=== PATIENT | female | born 1970 | race American Indian/Alaskan Native ===

== ENCOUNTER 2017-01-26 15:10 | Emergency (ER) | payer BC ==
--- NOTE | 2017-01-26 19:04 | Emergency Department Report ---
ED Back Pain/Injury HPI - General Chief Complaint: Back Pain/Injury Stated Complaint: RT SIDE PAIN Time Seen by Provider: 01/26/17 19:01 Source: patient, family Limitations: No Limitations - History of Present Illness Initial Comments: Patient here reporting right lower back pain going down the right leg. She said the pain has been present for 2 weeks. She cannot recall any injury to her back. She says she had back pain in the past but nothing like what she is experiencing now. Pain is 7 out of 10 and achy nonradiating. No over-the- counter medication taken. Denies abdominal pain. Denies any numbness or tingling to extremities. Denies any loss of bowel or bladder function. No nausea vomiting. Denies any fever or chills. Urinary burning frequency or urgency. MD Complaint: back pain Onset/Timin -: week(s) Similar Symptoms Previously: No Place: home Radiation: right leg Severity: moderate Severity scale (0 -10): 7 Quality: aching Improves With: immobilization Worsens With: movement, walking Context: unknown Associated Symptoms: denies: confusion, weakness, chest pain, numbness, difficulty walking, cough, difficulty urinating, diaphoresis, incontinence, fever/chills, constipation, headaches, abdominal pain, loss of appetite, malaise , nausea/vomiting, rash, seizure, shortness of breath, syncope - Related Data Previous Rx's Medication Instructions Recorded Last Taken Type traMADol [Ultram] 50 mg PO Q6HR PRN #20 tablet 01/26/17 Unknown Rx Allergies Allergy/AdvReac Type Severity Reaction Status Date / Time No Known Allergies Allergy Unverified 01/26/17 15:27 ED Review of Systems ROS: Stated complaint: RT SIDE PAIN Other details as noted in HPI Comment: All other systems reviewed and negative Constitutional: no symptoms reported ENT: denies: epistaxis Respiratory: no symptoms reported Cardiovascular: denies: chest pain, palpitations, edema, syncope Gastrointestinal: denies: abdominal pain, nausea, vomiting, diarrhea, constipation Genitourinary: denies: urgency, dysuria, frequency, hematuria, discharge, abnormal menses Musculoskeletal: denies: arthralgia, myalgia Skin: denies: rash Neurological: denies: headache, weakness, numbness, paresthesias, confusion, abnormal gait, vertigo ED Past Medical Hx - Past Medical History Previous Medical History?: Yes Hx Hypertension: Yes Hx Seizures: Yes Hx Asthma: Yes Additional medical history: Carpal Tunnel - Surgical History Past Surgical History?: Yes Additional Surgical History: - Family History Family history: hypertension - Social History Smoking Status: Never Smoker Substance Use Type: None - Medications Home Medications: Home Medications Medication Instructions Recorded Confirmed Last Taken Type traMADol [Ultram] 50 mg PO Q6HR PRN #20 tablet 01/26/17 Unknown Rx ED Physical Exam - General Limitations: No Limitations General appearance: alert, in no apparent distress - Head Head exam: Present: atraumatic, normocephalic, normal inspection - Eye Eye exam: Present: normal appearance, PERRL, EOMI. Absent: periorbital swelling , periorbital tenderness Pupils: Present: normal accommodation - ENT ENT exam: Present: normal exam, normal orophraynx, mucous membranes moist, TM's normal bilaterally, normal external ear exam - Neck Neck exam: Present: normal inspection, full ROM. Absent: tenderness, meningismus, lymphadenopathy - Expanded Neck Exam Expanded Neck exam: Absent: tenderness, midline deformity, anterior neck swelling, tracheal deviation - Respiratory Respiratory exam: Present: normal lung sounds bilaterally. Absent: respiratory distress, chest wall tenderness - Cardiovascular Cardiovascular Exam: Present: regular rate, normal rhythm, normal heart sounds - GI/Abdominal GI/Abdominal exam: Present: soft, normal bowel sounds. Absent: distended, tenderness, guarding, rebound, rigid - Expanded Lower Extremity Exam Right Hip exam: Present: normal inspection, full ROM, pelvic stability. Absent: tenderness, swelling, abrasion, laceration, ecchymosis, deformity, crepidus, dislocation, erythema, external rotation, internal rotation, shortening Upper Leg exam: Present: normal inspection, full ROM. Absent: tenderness, swelling, abrasion, laceration, ecchymosis, deformity, crepidus, dislocation, erythema Knee exam: Present: normal inspection, full ROM, full knee extension. Absent: tenderness, swelling, abrasion, laceration, ecchymosis, deformity, crepidus, dislocation, erythema, effusion, pain w/ pronation/supination Lower Leg exam: Present: normal inspection, full ROM. Absent: tenderness, swelling, abrasion, laceration, ecchymosis, deformity, crepidus, dislocation, erythema, palpable cord, Rachael's sign Ankle exam: Present: normal inspection, full ROM. Absent: tenderness, swelling , abrasion, laceration, ecchymosis, deformity, crepidus, dislocation, erythema Foot/Toe exam: Present: normal inspection, full ROM. Absent: tenderness, swelling, abrasion, laceration, ecchymosis, deformity, crepidus, dislocation, erythema, amputation, puncture wound, foreign body, calcaneal tenderness, tenderness at base of 5th metatarsal, nail avulsion, subungual hematoma Neuro vascular tendon exam: Present: no vascular compromise. Absent: pulse deficit, abnormal cap refill, motor deficit, sensory deficit, tendon deficit, extremity cold to touch, pallor, abnormal 2-point discrimination, decreased fine /light touch, foot drop, peroneal nerve deficit, significant pain with passive ROM of distal joint Gait: Positive: observed and normal - Back Exam Back exam: Present: normal inspection, full ROM. Absent: tenderness, CVA tenderness (R), CVA tenderness (L), muscle spasm, paraspinal tenderness, vertebral tenderness, rash noted - Expanded Back Exam Expanded Back exam: Absent: saddle anesthesia Back exam: Negative Straight Leg Raising: Left, Right - Neurological Exam Neurological exam: Present: alert, oriented X3, normal gait, reflexes normal. Absent: motor sensory deficit - Expanded Neurological Exam Expanded Neurological exam: Absent: innattentive, memory loss-remote event, memory loss- recent event, ataxia, receptive aphasia, expressive aphasia, total aphasia, tremor, protecting the airway Patient oriented to: Present: person, place, time Speech: Present: fluid speech Cranial nerves: EOM's Intact: Normal, Gag Reflex: Normal, Nystagmus: Normal, Facial Sensation: Normal Cerebellar function: Romberg: Normal Upper motor neuron: Pronator Drift: Normal, Sensory Extinction: Normal Sensory exam: Upper Extremity Light Touch: Normal, Upper Extremity Temperature: Normal, Lower Extremity Light Touch: Normal, Lower Extremity Temperature: Normal Motor strength exam: RUE: 5, LUE: 5, RLE: 5, LLE: 5 DTR: bicep (R): 2+, bicep (L): 2+, tricep (R): 2+, tricep (L): 2+, knee (R): 2+ , knee (L): 2+, ankle (R): 2+, ankle (L): 2+ Best Eye Response (Murray): (4) open spontaneously Best Motor Response (Murray): (6) obeys commands Best Verbal Response (Murray): (5) oriented Saira Total: 15 - Psychiatric Psychiatric exam: Present: normal affect, normal mood - Skin Skin exam: Present: warm, dry, intact, normal color. Absent: rash ED Course Vital Signs 01/26/17 15:27 Temperature 98.2 F Pulse Rate 82 Respiratory 20 Rate Blood Pressure 141/82 O2 Sat by Pulse 97 Oximetry - Reevaluation(s) Reevaluation #1: 01/26/17 21:06 Patient given [place] 5/325 2 tablets , Flexeril 10 mg by mouth in emergency room along with Decadron 10 mg IM. ED Medical Decision Making - Lab Data Lab Results 01/26/17 Range/Units 19:35 Urine Color Yellow (Yellow) Urine Turbidity Clear (Clear) Urine pH 5.0 (5.0-7.0) Ur Specific [place] 1.020 (1.003-1.030) Urine Protein <15 mg/dl (Negative) mg/dL Urine Glucose (UA) Neg (Negative) mg/dL Urine Ketones Neg (Negative) mg/dL Urine Blood Neg (Negative) Urine Nitrite Neg (Negative) Urine Bilirubin Neg (Negative) Urine Urobilinogen < 2.0 (<2.0) mg/dL Ur Leukocyte Esterase Mod (Negative) Urine WBC (Auto) 2.0 (0.0-6.0) /HPF Urine RBC (Auto) 1.0 (0.0-6.0) /HPF U Epithel Cells (Auto) 2.0 (0-13.0) /HPF Urine Mucus Few /HPF Urine culture is pending - Radiology Data Radiology results: report reviewed X-ray of the lumbar spine revealed mild degeneration after discussion faucet degenerative changes. - Medical Decision Making ED course: She given [place] 5/325 mg 2 tablets by mouth and Flexeril 10 mg by mouth. She was also given 10 Mg IM and Emergency Room for Lower Back Pain. Radiculopathic. Her Urine Was Normal except That She Has Moderate Leukocyte Estrace. Discussed with Her That I Sent a Culture off and If She Needs to Be on Antibiotic Will Call Her and Let Her Know. I Discussed X-Ray Results with Her and Discussed Treatment Plan. Discussed with Her That If She Continues to Have Back Pain with Radiating She Will Need to Follow-Up with Orthopedic Doctor. Patient Discharged Home with Prescription for Ultram. Critical care attestation.: If time is entered above; I have spent that time in minutes in the direct care of this critically ill patient, excluding procedure time. ED Disposition Clinical Impression: Lumbar radiculopathy, acute, Degenerative disc disease, lumbar Lower back pain Qualifiers: Chronicity: acute Back pain laterality: right Sciatica presence: with sciatica Sciatica laterality: sciatica of right side Qualified Code(s): M54.41 - Lumbago with sciatica, right side Disposition: DISCHARGED TO HOME OR SELFCARE Is pt being admited?: No Does the pt Need Aspirin: No Condition: Stable Instructions: Lumbar Radiculopathy (ED), Back Pain (ED), Degenerative Disc Disease (ED) Prescriptions: traMADol [Ultram] 50 mg PO Q6HR PRN #20 tablet PRN Reason: Pain Referrals: RITU ORDONEZ MD [Staff Physician] - 3-5 Days Forms: Work/School Release Form(ED), Accompanied Note
[2017-01-26] MEDS ORDERED: FLEXERIL PO ONE (19:36)
[2017-01-26] MEDS ORDERED: NORCO 5/325 PO ONE (19:36)
[2017-01-26 19:54] LABS: Bilirubin,Urine NEG (Negative); Blood,Urine NEG (Negative); Ketones,Urine NEG (Negative); Leukocyte Esterase,Urine MOD (Negative); Mucus,Urine FEW /HPF; Nitrite,Urine NEG (Negative); Protein,Urine <15 mg/dL mg/dL (Negative); Urobilinogen,Urine < 2.0 mg/dL (<2.0)
--- NOTE | 2017-01-26 20:43 | XRay Report ---
FINAL REPORT PROCEDURE: XR SPINE LUMBOSACRAL 2-3V TECHNIQUE: Lumbosacral spine, AP and lateral views HISTORY: lumbar radiculopathy COMPARISON: No prior studies are available for comparison. FINDINGS: Vertebral body heights and alignment are maintained. There is mild degenerative disc space narrowing and endplate sclerosis at L5-S1. No scoliosis. Mild lower lumbar spine facet arthritic changes. IMPRESSION: Mild lower lumbar spine degenerative disc and facet degenerative changes
[2017-01-26] MEDS ORDERED: DECADRON IM STA (20:59)
[2017-01-26 21:41] VITALS: BP 160/99
== END 2017-01-26 21:23 | disposition home or self-care (01) ==
LOC: ED 15:10
DX: M51.16 Intervertebral disc disorders with radiculopathy, lumbar region (principal); I10 Essential (primary) hypertension; R56.9 Unspecified convulsions; J45.909 Unspecified asthma, uncomplicated
CPT/HCPCS: 72100; 81001; 81025; 87086; 96372; 99283; J1100

== ENCOUNTER 2017-07-10 16:00 | Emergency (ER) | payer BC ==
[2017-07-10 16:14] VITALS: BP 156/99
[2017-07-10 22:00] LABS: Basophils % (Auto) 0.5 % (0.0-1.8); Eosinophils % (Auto) 0.3 % (0.0-4.3); Hematocrit 37.9 % (30.3-42.9); Hemoglobin 11.8 gm/dl (10.1-14.3); Mean Corpuscular HGB Conc 31 % (30-34); Mean Corpuscular Volume 76 fl (79-97); Platelet Count 151 K/mm3 (140-440); Red Blood Count 4.99 M/mm3 (3.65-5.03); Red Cell Distribution Width 14.8 % (13.2-15.2); White Blood Count 9.4 K/mm3 (4.5-11.0)
[2017-07-10 22:06] LABS: Mean Corpuscular Hemoglobin 24 pg (28-32)
[2017-07-10 22:16] LABS: Alanine Aminotransferase 20 units/L (7-56); Albumin 4.1 g/dL (3.9-5); Albumin/Globulin Ratio 1.4 %; Alkaline Phosphatase 91 units/L (35-129); Anion Gap 21 mmol/L; Blood Urea Nitrogen 14 mg/dL (7-17); Calcium 9.4 mg/dL (8.4-10.2); Carbon Dioxide 22 mmol/L (22-30); Chloride 103.4 mmol/L (98-107); Glucose 151 mg/dL (65-100); Potassium 4.1 mmol/L (3.6-5.0); Sodium 142 mmol/L (137-145); Total Protein 7.1 g/dL (6.3-8.2)
== END 2017-07-11 | disposition left against medical advice (07) ==
LOC: ED 16:00
DX: R42 Dizziness and giddiness (principal); Z53.21 Procedure and treatment not carried out due to patient leaving prior to being seen by health care provider
CPT/HCPCS: 36415; 80053; 85025

== ENCOUNTER 2018-02-08 10:37 | Outpatient (CLI) | payer BC ==
[2018-02-08 11:03] LABS: Hematocrit 37.2 % (30.3-42.9); Hemoglobin 11.6 gm/dl (10.1-14.3); Mean Corpuscular HGB Conc 31 % (30-34); Mean Corpuscular Volume 76 fl (79-97); Platelet Count 124 K/mm3 (140-440); Red Blood Count 4.91 M/mm3 (3.65-5.03); Red Cell Distribution Width 14.9 % (13.2-15.2)
[2018-02-08 11:06] LABS: Mean Corpuscular Hemoglobin 24 pg (28-32)
[2018-02-08 11:18] LABS: Alanine Aminotransferase 17 units/L (7-56); Albumin 3.9 g/dL (3.9-5); BUN/Creatinine Ratio 26; Blood Urea Nitrogen 18 mg/dL (7-17); Calcium 9.1 mg/dL (8.4-10.2); Chol/HDL Ratio 2.92 %; HDL Cholesterol 53 mg/dL (40-59); Hemolysis Index 13; LDL Cholesterol,Direct 95 mg/dL (50-130)
== END 2018-02-08 10:38 | disposition home or self-care (01) ==
LOC: LAB 10:37
PROVIDERS: ATTEND Internal Medicine
DX: E11.65 Type 2 diabetes mellitus with hyperglycemia (principal); E78.2 Mixed hyperlipidemia; R53.83 Other fatigue
CPT/HCPCS: 36415; 80053; 80061; 83036; 84443; 85027

== ENCOUNTER 2018-02-10 08:34 | Outpatient (CLI) | payer BC ==
--- NOTE | 2018-02-11 14:52 | Mammography Report ---
BILATERAL DIGITAL SCREENING MAMMOGRAM WITH CAD:02/10/18 08:45:00 CLINICAL: Baseline screening. FINDINGS: The breasts are mostly fatty with a few bilateral scattered fibroglandular densities.No mass, architectural distortion or suspicious calcifications. IMPRESSION: No mammographic evidence of malignancy. BI-RADS CATEGORY: 1 -- Negative RECOMMENDATION: Routine mammographic screening in one year. ACR BI-RADS MAMMOGRAPHIC CODES: 0 = Needs additional imaging evaluation; 1 = Negative; 2 = Benign; 3 = Probably benign; 4 = Suspicious; 5 = Malignant; 6 = Known biopsy-proven malignancy COMMENT: 1. Dense breast tissue, i.e., adenosis, fibrocystic changes, etc., may obscure an underlying neoplasm. 2. Approximately 10% of cancers are not detected with mammography. 3. A negative mammography report should not delay biopsy if a clinically suspicious mass is present.
== END 2018-02-10 08:35 | disposition home or self-care (01) ==
LOC: SPVWC 08:34
PROVIDERS: ATTEND Internal Medicine
DX: Z12.31 Encounter for screening mammogram for malignant neoplasm of breast (principal)
CPT/HCPCS: 77067

== ENCOUNTER 2018-06-01 10:20 | Outpatient (CLI) | payer BC ==
[2018-06-01 10:45] LABS: Basophils % (Auto) 0.5 % (0.0-1.8); Eosinophils # (Auto) 0.2 K/mm3 (0.0-0.4); Hemoglobin 11.9 gm/dl (10.1-14.3); Lymphocytes # (Auto) 1.8 K/mm3 (1.2-5.4); Lymphocytes % (Auto) 29.5 % (13.4-35.0); Mean Corpuscular HGB Conc 31 % (30-34); Mean Corpuscular Volume 76 fl (79-97); Monocytes # (Auto) 0.4 K/mm3 (0.0-0.8); Monocytes % (Auto) 7.3 % (0.0-7.3); Platelet Count 138 K/mm3 (140-440); Red Blood Count 5.01 M/mm3 (3.65-5.03); Red Cell Distribution Width 14.8 % (13.2-15.2)
[2018-06-01 10:46] LABS: Mean Corpuscular Hemoglobin 24 pg (28-32)
[2018-06-01 11:04] LABS: Erythrocyte Sedimentation Rate 20 mm/Hr (0-20)
[2018-06-01 11:08] LABS: Alanine Aminotransferase 16 units/L (7-56); Albumin 3.9 g/dL (3.9-5); BUN/Creatinine Ratio 23; Blood Urea Nitrogen 16 mg/dL (7-17); Calcium 9.2 mg/dL (8.4-10.2); Hemolysis Index 7; Uric Acid 5.3 mg/dL (3.5-7.6)
--- NOTE | 2018-06-02 07:56 | XRay Report ---
BILATERAL FEET, 3 VIEWS History: Chronic gout left and right ankle. Findings: No comparison. There is normal bone mineralization. No evidence for fracture, bone lesion or bony erosions. No significant degenerative changes. Small plantar spurs are noted bilaterally. The soft tissues are unremarkable. Impression: Small bilateral plantar spurs, otherwise, unremarkable bilateral feet.
== END 2018-06-01 10:21 | disposition home or self-care (01) ==
LOC: XRAY 10:20
PROVIDERS: ATTEND Podiatrist Foot & Ankle Surgery
DX: M77.52 Other enthesopathy of left foot and ankle (principal); M77.51 Other enthesopathy of right foot and ankle; M1A.0711 Idiopathic chronic gout, right ankle and foot, with tophus (tophi); M1A.0721 Idiopathic chronic gout, left ankle and foot, with tophus (tophi); M79.89 Other specified soft tissue disorders; L08.9 Local infection of the skin and subcutaneous tissue, unspecified; M25.70 Osteophyte, unspecified joint; I10 Essential (primary) hypertension; J45.909 Unspecified asthma, uncomplicated
CPT/HCPCS: 36415; 80053; 84550; 85025; 85652

== ENCOUNTER 2019-10-02 18:44 | Emergency (ER) | payer SELFPAY ==
--- NOTE | 2019-10-02 19:32 | Emergency Department Report ---
Blank Doc - Documentation Documentation: 48-year-old female that presents with SOB, body aches, cough, and chest pain d uring cough. This initial assessment/diagnostic orders/clinical plan/treatment(s) is/are subject to change based on patient's health status, clinical progression and re- assessment by fellow clinical providers in the ED. Further treatment and workup at subsequent clinical providers discretion. Patient/guardians urged not to elope from the ED as their condition may be serious if not clinically assessed and managed. Initial orders include: 1- Patient sent to [facility] for further evaluation and treatment 2- CXR
[2019-10-02 19:33] VITALS: BP 154/66
--- NOTE | 2019-10-02 20:12 | XRay Report ---
CHEST 2 VIEWS INDICATION: cough. COMPARISON: None. FINDINGS: Support devices: None. Heart: Within normal limits. Lungs/Pleura: Large mass right middle lobe measuring approximately 5.7 cm. Abnormal appearance of the right hilum as well likely representing adenopathy. Small right effusion. The left lung is clear. IMPRESSION: Extensive changes right chest worrisome for metastatic carcinoma. Contrast-enhanced CT c hest is recommended for further evaluation. Signer Name: Hector Castaneda MD Signed: 10/02/2019 8:08 PM Workstation Name: [id number]
[2019-10-02 22:54] LABS: Basophils % (Auto) 0.5 % (0.0-1.8); Eosinophils # (Auto) 0.2 K/mm3 (0.0-0.4); Eosinophils % (Auto) 3.1 % (0.0-4.3); Hematocrit 36.7 % (30.3-42.9); Hemoglobin 11.4 gm/dl (10.1-14.3); Lymphocytes # (Auto) 1.4 K/mm3 (1.2-5.4); Lymphocytes % (Auto) 20.5 % (13.4-35.0); Mean Corpuscular HGB Conc 31 % (30-34); Mean Corpuscular Volume 74 fl (79-97); Monocytes # (Auto) 0.6 K/mm3 (0.0-0.8); Monocytes % (Auto) 8.1 % (0.0-7.3); Platelet Count 190 K/mm3 (140-440); Red Blood Count 4.94 M/mm3 (3.65-5.03); Red Cell Distribution Width 15.8 % (13.2-15.2)
[2019-10-02 23:03] LABS: INR 0.95 (0.87-1.13)
[2019-10-02 23:04] LABS: Partial Thromboplastin Time 26.6 Sec. (24.2-36.6)
[2019-10-02 23:05] LABS: Alanine Aminotransferase 20 units/L (7-56); Albumin 4.1 g/dL (3.9-5); BUN/Creatinine Ratio 19; Blood Urea Nitrogen 13 mg/dL (7-17); Calcium 9.4 mg/dL (8.4-10.2); Hemolysis Index 6
--- NOTE | 2019-10-02 23:33 | Emergency Department Report ---
ED General Adult HPI - General Chief complaint: Upper Respiratory Infection Stated complaint: CHEST PAIN, SOB Time Seen by Provider: 10/02/19 19:31 Source: patient Mode of arrival: Ambulatory Limitations: No Limitations - History of Present Illness Initial comments: Patient is a 48-year-old female presents emergency room with complaints of shortness of breath that began 2 weeks ago. She has associated right sided chest pain which she describes as soreness and a muscle spasm. She states she has pain with taking deep breaths. Patient states that she also has right upper quadrant pain and has occasional episodes of diaphoresis. She denies any vom iting, diarrhea, fever, recent illness, urinary symptoms. She states she is a never smoker. She states that her is a smoker. She has a past medical history of asthma, hypertension, carpal tunnel. She denies any allergies medications. She denies any daily medications. Severity scale (0 -10): 8 - Related Data Previous Rx's Medication Instructions Recorded Last Taken Type traMADoL [Ultram] 50 mg PO Q6HR PRN #20 tablet 01/26/17 Unknown Rx Allergies Allergy/AdvReac Type Severity Reaction Status Date / Time No Known Allergies Allergy Unverified 01/26/17 15:27 ED Review of Systems ROS: Stated complaint: CHEST PAIN, SOB Other details as noted in HPI Comment: All other systems reviewed and negative ED Past Medical Hx - Past Medical History Previous Medical History?: Yes Hx Hypertension: Yes Hx Seizures: Yes Hx Asthma: Yes Additional medical history: Carpal Tunnel - Surgical History Past Surgical History?: Yes Additional Surgical History: - Social History Smoking Status: Never Smoker Substance Use Type: None - Medications Home Medications: Home Medications Medication Instructions Recorded Confirmed Last Taken Type traMADoL [Ultram] 50 mg PO Q6HR PRN #20 tablet 01/26/17 Unknown Rx ED Physical Exam - General Limitations: No Limitations General appearance: alert, in no apparent distress - Head Head exam: Present: atraumatic, normocephalic - Eye Eye exam: Present: normal appearance - ENT ENT exam: Present: mucous membranes moist - Respiratory Respiratory exam: Present: normal lung sounds bilaterally. Absent: respiratory distress, wheezes, rales, rhonchi, stridor, chest wall tenderness, accessory muscle use, decreased breath sounds, prolonged expiratory - Cardiovascular Cardiovascular Exam: Present: regular rate, normal rhythm, normal heart sounds. Absent: systolic murmur, diastolic murmur, rubs, gallop - GI/Abdominal GI/Abdominal exam: Present: soft, tenderness (RUQ), normal bowel sounds. Absent: distended, guarding, rebound, rigid - Neurological Exam Neurological exam: Present: alert, oriented X3 - Psychiatric Psychiatric exam: Present: normal affect, normal mood - Skin Skin exam: Present: warm, dry, intact ED Course Vital Signs 10/02/19 10/02/19 19:31 22:22 Temperature 98 F Pulse Rate 80 Respiratory 18 17 Rate Blood Pressure 154/66 O2 Sat by Pulse 100 Oximetry - Consultations Consultation #1: 10/03/19 01:[address] Terrell, hospitalist regarding pt history and results, will admit pt to the hospital, will accept and resume care of patient, asked to write admit orders. 10/03/19 01:45 Dr. Terrell, hospitalist went to see patient and she informed him that her daughter wanted her to get a second opinion. I went in to speak with patient and she also told me that she wants to get a second opinion. I discussed with patient that another hospital would also perform the same CT scan that we did and that she needed a biopsy for further evaluation. Patient states that she would like to go home and think about it I discussed the risks associated with leaving AMA. Patient states that she will sign AMA form. I went over the risks and she signed AMA form. ED Medical Decision Making - Lab Data Result diagrams: 10/02/19 22:29 10/02/19 22:29 Lab Results 10/02/19 10/02/19 10/02/19 Range/Units 22:29 22:29 22:29 WBC 7.0 (4.5-11.0) K/mm3 RBC 4.94 (3.65-5.03) M/mm3 Hgb 11.4 (10.1-14.3) gm/dl Hct 36.7 (30.3-42.9) % MCV 74 L (79-97) fl MCH 23 L (28-32) pg MCHC 31 (30-34) % RDW 15.8 H (13.2-15.2) % Plt Count 190 (140-440) K/mm3 Lymph % (Auto) 20.5 (13.4-35.0) % [place] % (Auto) 8.1 H (0.0-7.3) % Eos % (Auto) 3.1 (0.0-4.3) % Baso % (Auto) 0.5 (0.0-1.8) % Lymph # 1.4 (1.2-5.4) K/mm3 [place] # 0.6 (0.0-0.8) K/mm3 Eos # 0.2 (0.0-0.4) K/mm3 Baso # 0.0 (0.0-0.1) K/mm3 Seg Neutrophils % 67.8 (40.0-70.0) % Seg Neutrophils # 4.8 (1.8-7.7) K/mm3 PT 12.6 (12.2-14.9) Sec. INR 0.95 (0.87-1.13) APTT 26.6 (24.2-36.6) Sec. Sodium 144 (137-145) mmol/L Potassium 4.0 (3.6-5.0) mmol/L Chloride 105.5 (98-107) mmol/L Carbon Dioxide 26 (22-30) mmol/L Anion Gap 17 mmol/L BUN 13 (7-17) mg/dL Creatinine 0.7 (0.7-1.2) mg/dL Estimated GFR > 60 ml/min BUN/Creatinine Ratio 19 % Glucose 115 H (65-100) mg/dL Calcium 9.4 (8.4-10.2) mg/dL Total Bilirubin 0.20 (0.1-1.2) mg/dL AST 21 (5-40) units/L ALT 20 (7-56) units/L Alkaline Phosphatase 97 (35-129) units/L Troponin T < 0.010 (0.00-0.029) ng/mL NT-Pro-B Natriuret Pep (0-900) pg/mL Total Protein 7.8 (6.3-8.2) g/dL Albumin 4.1 (3.9-5) g/dL Albumin/Globulin Ratio 1.1 % 10/02/19 10/03/19 Range/Units 22:29 01:01 WBC (4.5-11.0) K/mm3 RBC (3.65-5.03) M/mm3 Hgb (10.1-14.3) gm/dl Hct (30.3-42.9) % MCV (79-97) fl MCH (28-32) pg MCHC (30-34) % RDW (13.2-15.2) % Plt Count (140-440) K/mm3 Lymph % (Auto) (13.4-35.0) % [place] % (Auto) (0.0-7.3) % Eos % (Auto) (0.0-4.3) % Baso % (Auto) (0.0-1.8) % Lymph # (1.2-5.4) K/mm3 [place] # (0.0-0.8) K/mm3 Eos # (0.0-0.4) K/mm3 Baso # (0.0-0.1) K/mm3 Seg Neutrophils % (40.0-70.0) % Seg Neutrophils # (1.8-7.7) K/mm3 PT (12.2-14.9) Sec. INR (0.87-1.13) APTT (24.2-36.6) Sec. Sodium (137-145) mmol/L Potassium (3.6-5.0) mmol/L Chloride (98-107) mmol/L Carbon Dioxide (22-30) mmol/L Anion Gap mmol/L BUN (7-17) mg/dL Creatinine (0.7-1.2) mg/dL Estimated GFR ml/min BUN/Creatinine Ratio % Glucose (65-100) mg/dL Calcium (8.4-10.2) mg/dL Total Bilirubin (0.1-1.2) mg/dL AST (5-40) units/L ALT (7-56) units/L Alkaline Phosphatase (35-129) units/L Troponin T < 0.010 (0.00-0.029) ng/mL NT-Pro-B Natriuret Pep 40.06 (0-900) pg/mL Total Protein (6.3-8.2) g/dL Albumin (3.9-5) g/dL Albumin/Globulin Ratio % - Radiology Data Radiology results: report reviewed CT CHEST WITH CONTRAST INDICATION: Right lung mass seen on chest x-ray. TECHNIQUE: Axial CT images were obtained through the chest after 100 cc Omnipaque 300 IV contrast. Coronal and sagittal reformats were produced. All CT scans at this location are performed using CT dose r eduction for ALARA by means of automated exposure control. COMPARISON: 2 views of the chest from 10/02/2019. FINDINGS: MEDIASTINUM: Prominent nodes are seen along the right paratracheal region measuring less than 1 cm. No dominant mediastinal mass is identified. The heart is normal in size without a significant pericardial effusion. No other significant abnormality. THORACIC AORTA AND ARTERIES: No significant abnormality. LUNGS: Multiple large pleural-based masses are seen along the right upper and middle lobes. A retail sales representative mass located anteriorly along the right upper lobe measures 6.9 x 5.0 cm on image 48 of series 2. There is a small right pleural effusion with associated atelectasis. Small noncalcified subpleural nodules are seen along the left lower lobe. A retail sales representative nodule located posteriorly along the left lower lobe measuring 4.5 mm on image 70 of series 2. The left lung is otherwise clear. No pneumothorax. ADDITIONAL FINDINGS: None. UPPER ABDOMEN: 2 subcentimeter hypodense lesions are seen centrally along the hepatic dome measuring up to 9 mm on image 85 of series 2 and may represent cysts. No other significant abnormality. SKELETAL SYSTEM: Degenerative changes are seen throughout the spine. No acute abnormality or aggressive appearing osseous lesion. IMPRESSION: 1. Multiple right pleural-based masses are compatible with malignancy until proven otherwise. 2. Small left lower lobe subpleural nodules are of uncertain significance. Metastatic disease cannot be excluded. 3. Prominent mediastinal nodes are nonspecific, but are concerning for metastatic disease. 4. Additional findings as above. Signer Name: Logan Baker MD Signed: 10/03/2019 12:10 AM Workstation Name: [id number] Transcribed By: [place] Dictated By: Logan Baker MD Electronically Authenticated By: Logan Baker MD Signed Date/Time: 10/03/[address] ABDOMEN AND PELVIS WITH CONTRAST INDICATION: Right abdominal pain. Right lung mass on chest x-ray. COMPARISON: No relevant prior imaging study available. TECHNIQUE: Axial, coronal and sagittal CT imaging of the abdomen and pelvis was performed after injection of 100 cc Omnipaque [address] scans at this location are performed using CT dose reduction for ALARA by means of automated exposure control. FINDINGS: LOWER CHEST: There is a small right pleural effusion with associated atelectasis. No additional significant abnormality. LIVER: Cysts are noted along the hepatic dome measuring up to 8 mm. No additional significant abnormality. BILIARY: No significant abnormality. PANCREAS: No significant abnormality. SPLEEN: No significant abnormality. ADRENALS: No significant abnormality. KIDNEYS AND URETERS: No significant abnormality. GI TRACT: No significant abnormality of the stomach or small bowel. There is scattered colonic diverticulosis without evidence of diverticulitis or other significant colonic abnormalities. Unremarkable appendix. PERITONEUM: No free fluid. No free air. No fluid collection. LYMPH NODES: Extensive right retrocrural adenopathy is noted. No additional significant adenopathy. VASCULATURE: No significant abnormality. URINARY BLADDER: No significant abnormality. REPRODUCTIVE ORGANS: Multiple probable fibroids are seen within the uterus. I ndex lesion located along the uterine fundus to the right of midline measures 4.7 x 3.8 cm on image 133 of series 3. ADDITIONAL FINDINGS: None. SKELETAL SYSTEM: There are moderate degenerative changes of the spine without an acute abnormality or aggressive appearing osseous lesion. IMPRESSION: 1. Extensive right retrocrural adenopathy is compatible with metastatic disease. No distinct primary malignancy is seen in the abdomen or pelvis. 2. Additional findings as above. Signer Name: Logan Baker MD Signed: 10/03/2019 12:49 AM Workstation Name: [id number] Transcribed By: LENNIE Dictated By: Logan Baker MD Electronically Authenticated By: Logan Baker MD Signed Date/Time: 10/03/19 0049 CHEST 2 VIEWS INDICATION: cough. COMPARISON: None. FINDINGS: Support devices: None. Heart: Within normal limits. Lungs/Pleura: Large mass right middle lobe measuring approximately 5.7 cm. Abnormal appearance of the right hilum as well likely representing adenopathy. Small right effusion. The left lung is clear. IMPRESSION: Extensive changes right chest worrisome for metastatic carcinoma. Contrast-enhanced CT chest is recommended for further evaluation. Signer Name: Hector Castaneda MD Signed: 10/02/2019 8:08 PM Workstation Name: [id number] Transcribed By: PETRONA Dictated By: Hector Castaneda MD Electronically Authenticated By: Hector Castaneda MD Signed Date/Time: 10/02/19 2008 - Medical Decision Making Patient is a 48-year-old female presents emergency room with complaints of shortness of breath that began 2 weeks ago. She has associated right sided chest pain which she describes as soreness and a muscle spasm. She states she has pain with taking deep breaths. Patient states that she also has right upper quadrant pain and has occasional episodes of diaphoresis. She denies any vomiting, diarrhea, fever, recent illness, urinary symptoms. She states she is a never smoker. She states that her is a smoker. She has a past me dical history of asthma, hypertension, carpal tunnel. She denies any allergies medications. She denies any daily medications. Vital signs stable. labs are stable. Troponin is negative 2. CT chest: 1. Multiple right pleural-based masses are compatible with malignancy until proven otherwise. 2. Small left lower lobe subpleural nodules are of uncertain significance. Metastatic disease cannot be excluded. 3. Prominent mediastinal nodes are nonspecific, but are concerning for metastatic disease. 4. Additional findings as above. CT abd pelvis: 1. Extensive right retrocrural adenopathy is compatible with metastatic disease. No distinct primary malignancy is seen in the abdomen or pelvis. 2. A dditional findings as above. CXR: Extensive changes right chest worrisome for metastatic carcinoma. Contrast-enhanced CT chest is recommended for further evaluation. discussed case with Dr. Vincent who recommended admitting pt. spoke with Dr. Terrell, hospitalist regarding pt history and results, will admit pt to the hospital, will accept and resume care of patient, asked to write admit orders. Dr. Terrell, hospitalist went to see patient and she informed him that her daughter wanted her to get a second opinion. I went in to speak with patient and she also told me that she wants to get a second opinion. I discussed with patient that another hospital would also perform the same CT scan that we did and that she needed a biopsy for further evaluation. Patient states that she would like to go home and think about it I discussed the risks associated with leaving AMA. Patient states that she will sign AMA form. I went over the risks and she signed AMA form. the patient is alert and oriented x3. the patient exhibits decision making capacity. the patient is free from distracting injury. the risks of leaving without a complete medical examination, and AGAINST MEDICAL ADVICE, were explai sarah to the patient, and they included , disability, paralysis, permanent loss of quality of life. the patient verbalized understanding to these and was able to articulate these risks in their own words - Differential Diagnosis CHF, PE, ACS, mass, CA, PNA, PTX Critical care attestation.: If time is entered above; I have spent that time in minutes in the direct care of this critically ill patient, excluding procedure time. ED Disposition Clinical Impression: Mass of lung, Adenopathy, SOB (shortness of breath) Chest pain Qualifiers: Chest pain type: unspecified Qualified Code(s): R07.9 - Chest pain, unspecified Disposition: DC-07 LEFT AGAINST MED ADVICE Is pt being admited?: No Does the pt Need Aspirin: No Condition: Undetermined Instructions: Chest Pain (ED) Referrals: PRIMARY CARE, [Primary Care Provider] - [facility] Forms: AMA Form Time of Disposition: 01:13 Print Language: CHINESE
--- NOTE | 2019-10-03 00:14 | Cat Scan Report ---
CT CHEST WITH CONTRAST INDICATION: Right lung mass seen on chest x-ray. TECHNIQUE: Axial CT images were obtained through the chest after 100 cc Omnipaque 300 IV contrast. Coronal and s agittal reformats were produced. All CT scans at this location are performed using CT dose reduction for ALARA by means of automated exposure control. COMPARISON: 2 views of the chest from 10/02/2019. FINDINGS: MEDIASTINUM: Prominent nodes are seen along the right paratracheal region measuring less than 1 cm. N o dominant mediastinal mass is identified. The heart is normal in size without a significant pericard ial effusion. No other significant abnormality. THORACIC AORTA AND ARTERIES: No significant abnormality. LUNGS: Multiple large pleural-based masses are seen along the right upper and middle lobes. A represe ntative mass located anteriorly along the right upper lobe measures 6.9 x 5.0 cm on image 48 of serie s 2. There is a small right pleural effusion with associated atelectasis. Small noncalcified subpleur al nodules are seen along the left lower lobe. A sales training representative nodule located posteriorly along the left lower lobe measuring 4.5 mm on image 70 of series 2. The left lung is otherwise clear. No pneumo thorax. ADDITIONAL FINDINGS: None. UPPER ABDOMEN: 2 subcentimeter hypodense lesions are seen centrally along the hepatic dome measuring up to 9 mm on image 85 of series 2 and may represent cysts. No other significant abnormality. SKELETAL SYSTEM: Degenerative changes are seen throughout the spine. No acute abnormality or aggressi ve appearing osseous lesion. IMPRESSION: 1. Multiple right pleural-based masses are compatible with malignancy until proven otherwise. 2. Small left lower lobe subpleural nodules are of uncertain significance. Metastatic disease cannot be excluded. 3. Prominent mediastinal nodes are nonspecific, but are concerning for metastatic disease. 4. Additional findings as above. Signer Name: Logan Baker MD Signed: 10/03/2019 12:10 AM Workstation Name: [id number]
--- NOTE | 2019-10-03 00:53 | Cat Scan Report ---
CT ABDOMEN AND PELVIS WITH CONTRAST INDICATION: Right abdominal pain. Right lung mass on chest x-ray. COMPARISON: No relevant prior imaging study available. TECHNIQUE: Axial, coronal and sagittal CT imaging of the abdomen and pelvis was performed after inje ction of 100 cc Omnipaque [address] scans at this location are performed using CT dose re duction for ALARA by means of automated exposure control. FINDINGS: LOWER CHEST: There is a small right pleural effusion with associated atelectasis. No additional signi ficant abnormality. LIVER: Cysts are noted along the hepatic dome measuring up to 8 mm. No additional significant abnorma lity. BILIARY: No significant abnormality. PANCREAS: No significant abnormality. SPLEEN: No significant abnormality. ADRENALS: No significant abnormality. KIDNEYS AND URETERS: No significant abnormality. GI TRACT: No significant abnormality of the stomach or small bowel. There is scattered colonic divert iculosis without evidence of diverticulitis or other significant colonic abnormalities. Unremarkable appendix. PERITONEUM: No free fluid. No free air. No fluid collection. LYMPH NODES: Extensive right retrocrural adenopathy is noted. No additional significant adenopathy. VASCULATURE: No significant abnormality. URINARY BLADDER: No significant abnormality. REPRODUCTIVE ORGANS: Multiple probable fibroids are seen within the uterus. Index lesion located shivani g the uterine fundus to the right of midline measures 4.7 x 3.8 cm on image 133 of series 3. ADDITIONAL FINDINGS: None. SKELETAL SYSTEM: There are moderate degenerative changes of the spine without an acute abnormality or aggressive appearing osseous lesion. IMPRESSION: 1. Extensive right retrocrural adenopathy is compatible with metastatic disease. No distinct primary malignancy is seen in the abdomen or pelvis. 2. Additional findings as above. Signer Name: Logan Baker MD Signed: 10/03/2019 12:49 AM Workstation Name: [id number]
== END 2019-10-03 01:40 | disposition left against medical advice (07) ==
LOC: ED 18:44
DX: A18.39 Retroperitoneal tuberculosis (principal); R06.02 Shortness of breath; R07.89 Other chest pain; I10 Essential (primary) hypertension; J45.909 Unspecified asthma, uncomplicated; Z98.890 Other specified postprocedural states
CPT/HCPCS: 36415; 71046; 71260; 74177; 80053; 83880; 84484; 85025; 85610; 85730; 93005; 93010; 99284; Q9967